=== PATIENT | female | born 1980 | race Caucasian/White ===

== ENCOUNTER 2017-01-25 08:46 | Inpatient (IN) | payer MEDICAID ==
[2017-01-25] VITALS (7 sets, daily range): BP systolic 122–141
[~2017-01-25] VITALS: Ht 152.4 cm; Wt 64.4 kg
[2017-01-25] MEDS ORDERED: NACL 0.9% 1,000 ML IV SCH (09:06)
[2017-01-25 09:28] LABS: MEAN CORPUSCULAR HEMOGLOBIN 16 pg (27-31); MEAN CORPUSCULAR VOLUME 56 fL (79.0-98.0); RED BLOOD CELL COUNT(AUTO) 4.45 MIL/uL (4.2-6.2); WHITE BLOOD COUNT (AUTO) 9.8 K/uL (4.8-10.8)
[2017-01-25 09:36] LABS: HEMATOCRIT 24.7 % (36-48); HEMOGLOBIN 7.2 g/dL (12.0-16.0)
[2017-01-25 09:37] LABS: MEAN CORPUSCULAR HGB CONC 29 % (32-36); RED CELL DISTRIBUTION WIDTH 19.9 % (9.0-15.0)
[2017-01-25 09:39] LABS: CALCIUM 8.5 mg/dL (8.4-11.0); CREATININE 0.56 mg/dL (0.55-1.30); POTASSIUM 3.8 mmol/L (3.5-5.1)
[2017-01-25 09:41] LABS: PROTHROMBIN TIME 10.9 SECS (9.5-12.5)
[2017-01-25 09:44] LABS: ALBUMIN 4.1 g/dL (3.4-4.8); TOTAL BILIRUBIN 0.4 mg/dL (0.0-1.0); TOTAL PROTEIN, SERUM 8.5 g/dL (6.4-8.3)
[2017-01-25 09:50] LABS: PLATELET COUNT (AUTO) 412 K/uL (130-430)
[2017-01-25 09:59] LABS: BAND % (MANUAL) 0 % (0-6); BASOPHILS % (MANUAL) 0 % (0-2); EOSINOPHILS % (MANUAL) 2 % (0-7); LYMPHOCYTES % (MANUAL) 30 % (20-46); MONOCYTES % (MANUAL) 6 % (0-11)
[2017-01-25 10:28] LABS: BILIRUBIN,URINE NEGATIVE (NEGATIVE); BLOOD, URINE 1+ (NEGATIVE); CLARITY/URINE CLEAR (CLEAR); COLOR,URINE YELLOW (YELLOW); GLUCOSE,URINE NEGATIVE (NEGATIVE); KETONES,URINE NEGATIVE (NEGATIVE); LEUKOCYTE ESTERASE ,URINE NEGATIVE (NEGATIVE); NITRITE, URINE NEGATIVE (NEGATIVE); PH,URINE 6.5 (5.0-8.0); PROTEIN URINE NEGATIVE (NEGATIVE); UROBILINOGEN,URINE 0.2 (0.2-1.0)
[2017-01-25 10:37] LABS: BACTERIA,URINE None Seen /HPF (None Seen); MUCUS,URINE None Seen /LPF (None Seen); WBC,URINE 0-3 /HPF (0-3)
[2017-01-25] MEDS ORDERED: IOHEXOL 100 ML IV ONE (10:55)
[2017-01-25 13:06] LABS: IRON (SERUM) 11 mcg/dL (37-145); TOTAL IRON BIND. CAPACITY 511 ug/dL (250-450)
[2017-01-25] MEDS ORDERED: ACETAMINOPHEN 325 MG TABLET PO PRN (13:15)
[2017-01-25] MEDS ORDERED: FAMOTIDINE 20 MG TABLET PO ONE (13:15)
[2017-01-25] MEDS ORDERED: ZOLPIDEM TARTRATE 5 MG TABLET PO PRN (18:45)
[2017-01-26 00:18] VITALS: BP_SYST 127
[2017-01-26 03:57] VITALS: BP_SYST 109
[2017-01-26 04:24] LABS: EOSINOPHILS # (AUTO) 0.2 K/uL (0.0-0.4); HEMOGLOBIN 9.4 g/dL (12.0-16.0); MONOCYTES # (AUTO) 0.6 K/uL (0.0-1.0); NEUTROPHILS # (AUTO) 5.7 K/uL (1.8-7.7)
[2017-01-26 04:29] LABS: MEAN CORPUSCULAR HEMOGLOBIN 19 pg (27-31); MEAN CORPUSCULAR HGB CONC 30 % (32-36); MEAN CORPUSCULAR VOLUME 63 fL (79.0-98.0)
[2017-01-26 04:35] LABS: BASOPHILS # (AUTO) 0.1 K/uL (0.0-0.2); BASOPHILS % (AUTO) 0.6 % (0.0-2.0); EOSINOPHILS % (AUTO) 2.5 % (0.0-4.0); HEMATOCRIT 31.5 % (36-48); LYMPHOCYTES # (AUTO) 1.9 K/uL (1.0-5.5); LYMPHOCYTES % (AUTO) 21.8 % (20.5-51.5); MONOCYTES % (AUTO) 6.9 % (1.7-9.3); NEUTROPHILS % (AUTO) 68.2 % (40.0-70.0); PLATELET COUNT (AUTO) 264 K/uL (130-430); RED BLOOD CELL COUNT(AUTO) 4.99 MIL/uL (4.2-6.2); RED CELL DISTRIBUTION WIDTH 30.4 % (9.0-15.0); WHITE BLOOD COUNT (AUTO) 8.5 K/uL (4.8-10.8)
[2017-01-26 08:26] VITALS: BP_SYST 125
[2017-01-26] MEDS ORDERED: FAMOTIDINE 20 MG TABLET PO SCH (09:00)
[2017-01-26 12:00] VITALS: BP_SYST 109
[2017-01-26 14:59] VITALS: BP_SYST 115
[2017-01-30 16:15] LABS: FOLATE (FOLIC ACID) 12.3 ng/mL (>3.0)
== END 2017-01-26 15:30 | disposition home or self-care (01) | DRG 663 ==
LOC: SED 08:46 → STU 12:06
PROVIDERS: ADMIT Internal Medicine; ATTEND Internal Medicine
PROC: 30233N1 Transfusion of Nonautologous Red Blood Cells into Peripheral Vein, Percutaneous Approach (ICD-10-PCS; principal; 2017-01-25)
DX: D50.9 Iron deficiency anemia, unspecified (principal); N83.201 Unspecified ovarian cyst, right side; Z88.8 Allergy status to other drugs, medicaments and biological substances; N92.0 Excessive and frequent menstruation with regular cycle
CPT/HCPCS: 36415; 76856-TC; 80053; 81000-TC; 82607; 82746; 83540-TC; 83550-TC; 84443-TC; 84702-TC; 85007; 85025; 85027; 85610-TC; 85730-TC; 86886; 86900; 86901; 86920; 93005; 96360; 99285; J7030; J7040; P9021; Q9967